=== PATIENT | female | born 1930 | race African-American/Black ===

== ENCOUNTER 2017-08-30 11:58 | Inpatient (IN) | payer OTHER ==
[~2017-08-30] VITALS: Ht 149.9 cm; Wt 64.9 kg
--- NOTE | ~2017-08-30 | HC ---
[facility] [place] [address] CONSULTATION Name: ALLAN TAVERA Room #: [address] [place] [address] [place] ..#: [id number] Admission: 08/30/17 Attend Phys: Lee Garrett MD Discharge: 09/01/17 Date of : [birth year] Report #: [id number] THIS REPORT FOR: //name// CC: Kalani Garrett REQUESTING PHYSICIAN: Lee Garrett MD PRIMARY CARE PHYSICIAN: . CHIEF COMPLAINT: Shortness of breath. HISTORY OF PRESENT ILLNESS: The patient is an 87-year-old female with ischemic cardiomyopathy and known zkaberkz-gt-smvfit LV dysfunction, presented with 1-2 weeks of increasing shortness of breath. It is associated with orthopnea and PND. She has a history of coronary artery disease, but denies chest pain or pressure. Presenting ECG showed a sinus rhythm with repolarization abnormality and QRS was widened, but her cardiac troponin levels were normal at 0.04. Her NT-proBNP was 12,405. She denies palpitations, syncope, or presyncope. She presents in sinus rhythm. She denies noncompliance with her medications. She was seen in our office by myself in April and she was not on Lasix, it apparently had been discontinued from her previous hospitalization. PAST MEDICAL HISTORY: 1. Chronic systolic congestive heart failure, ejection fraction 30-35%. 2. Essential hypertension. 3. Coronary artery disease, status post PCI to the LAD in 1995 and 2015, echocardiogram, ejection fraction 35% on echocardiogram in 2016, nuclear stress test revealed a fixed defect in the anterior wall and ejection fraction was 37.5%. HOME MEDICATIONS: Include aspirin 81 mg daily, carvedilol 12.5 mg p.o. b.i.d., fish oil, lisinopril 5 mg daily, Zocor 40 mg daily, and Aldactone 25 mg daily. In the hospital, she has been receiving IV Lasix. SOCIAL HISTORY: She is a nonsmoker. ALLERGIES: She has no known drug allergies. PAST SURGICAL HISTORY: No recent surgery. [facility] [address] [place] [address] CONSULTATION Name: JD TAVERAAntony Room #: [address] [place] [address].#: [id number] Admission: 08/30/17 Attend Phys: Lee Garrett MD Discharge: 09/01/17 Date of : [birth year] Report #: [id number] FAMILY HISTORY: Sister has had coronary artery disease. REVIEW OF SYSTEMS: GENERAL: No fevers or chills. HEENT: Eyes, denies any blurred vision or loss of vision. No sore throat. GENITOURINARY: No dysuria or hematuria. PULMONARY: No wheezing or cough. Positive shortness of breath. Positive orthopnea. Positive PND. NEUROLOGIC: Denies slurred speech, numbness, or weakness. ENDOCRINE: She does not have diabetes or thyroid disease. HEMATOLOGIC: No history of easy bruising or bleeding. PHYSICAL EXAMINATION: VITAL SIGNS: Her blood pressure is 137/60, heart rate is 80 and in a sinus rhythm, respiratory rate is 18, temperature is 37.1, and her weight is 65 kg. GENERAL: This is a pleasant elderly female. She is alert, oriented, in no apparent distress. NECK: Supple. There is no jugular venous distention. CARDIOVASCULAR: Regular, positive S3. LUNGS: Coarse breath sounds at the bases. ABDOMEN: Nontender. EXTREMITIES: There is no peripheral edema. NEUROLOGIC: There are no focal deficits. SKIN: Warm and dry. LABORATORY DATA: Chest x-ray shows cardiomegaly with pulmonary vascular prominence and mild bibasilar infiltrates, small pleural effusions. Cardiac troponin levels 0.04. Hemoglobin is 12.0, white blood count is 8.5, platelet count is 210,000. Sodium is 141, potassium is 3.4, chloride is 105, CO2 is 26, BUN is 13, creatinine is 1.2, glucose is 79. Troponin I is 0.05. IMPRESSION: 1. Acute on chronic systolic dysfunction, congestive heart failure. She has been placed on IV diuretics and has had a negative fluid balance and we will continue with this for the next 24 hours. Likely, she will need to go home on a lower dose of oral Lasix likely 20 mg in addition to her Aldactone. 2. Hypokalemia. We will replace per protocol. 3. Coronary artery disease. She reports no symptoms of chest discomfort or chest tightness. 4. Hypertension. This is stable. <ELECTRONICALLY SIGNED> By: Zackery Clayton MD, FACC 09/21/17 0846 [id number] [id number] Zackery Clayton MD, FACC /nt
--- NOTE | ~2017-08-30 | EKG ---
[facility] [place] [address] ELECTROCARDIOGRAM REPORT Name: LI[facility]JDAntony [id number] Admission: 08/30/17 Attend Phys: Discharge: Date of : [birth year] Report #: [id number] THIS REPORT FOR: //name// [facility] ED Test Date: 2017-08-30 Test Time: 12:52:08 Pat Name: ALLAN TAVERA Department: Room: Gender: F Application Support Intern: Jeanette CRISOSTOMO : 1930 Requested By: Taniya Henry Order Number: [id number] MD: Jim Calderon Measurements Intervals [place] Rate: 76 P: 39 CT: 126 QRS: -56 QRSD: 144 T: 54 QT: 440 QTc: 495 Interpretive Statements Sinus rhythm Probable left atrial enlargement IVCD, consider atypical RBBB Anteroseptal infarct, age indeterminate Lateral leads are also involved Compared to ECG 10/09/2015 12:06:40 No significant changes Electronically Signed On 08-30-2017 13:19:51 WEATHER FORCASTER by Jim Calderon [email or web address] <ELECTRONICALLY SIGNED> By: Jim Calderon MD 08/30/17 1319 1252 1252 Jim Calderon MD /EPI
[~2017-08-30 11:58] MED LIST: AGGRENOX 25 MG1 EACH PO; ASPIR 8181 MG PO; CARVEDILOL12.5 MG PO; CORAL CALCIUM1 EAC2 PO; LISINOPRIL10 MG PO; NITROGLYCERIN0.4 MG SUBLING; PLAVIX 75 MG TA75 M1 PO; SIMVASTATIN20 MG PO; SIMVASTATIN40 MG PO; SPIRONOLACTONE25 M1 PO; VITAMIN D31000 UNI2 PO; ZANTAC 150MG T150 M1 PO
[2017-08-30 12:55] VITALS: BP 114/69
[2017-08-30 13:13] LABS: HEMATOCRIT 36.2 % (37.0-47.0); HEMOGLOBIN 11.5 gm/dL (12.0-15.0); MCH 25.5 pg (26.0-34.0); MCHC 31.8 g/dL (28.0-37.0); MCV 80.1 fL (80.0-100.0); PLATELET COUNT 216 thou/uL (150-400); RBC 4.51 mil/uL (4.20-5.00); RDW 15.2 % (10.5-14.5); WBC 6.9 thou/uL (4.0-11.0)
[2017-08-30 13:23] LABS: CALCIUM 9.3 mg/dL (8.5-10.1); CREATININE 1.1 mg/dL (0.6-1.0); POTASSIUM 5.2 mmol/L (3.5-5.1)
[2017-08-30 13:25] LABS: URINE BILIRUBIN NEGATIVE (Negative); URINE BLOOD NEGATIVE (Negative); URINE CLARITY SL CLOUDY; URINE COLOR YELLOW; URINE GLUCOSE-RANDOM* NEGATIVE (Negative); URINE KETONES NEGATIVE (Negative); URINE LEUKOCYTES-REFLEX NEGATIVE (Negative); URINE NITRITE-REFLEX NEGATIVE (Negative); URINE PROTEIN (DIPSTICK) NEGATIVE (Negative); URINE SPECIFIC GRAVITY <= 1.005 (1.005-1.035); URINE UROBILINOGEN 0.2 E.U./dl (0.2-1.0)
[2017-08-30 13:29] LABS: ALBUMIN 3.2 g/dL (3.4-5.0); TOTAL BILIRUBIN 0.6 mg/dL (<0.1-1.0); TOTAL PROTEIN 6.7 g/dL (6.4-8.2)
[2017-08-30 13:31] LABS: ABSOLUTE NEUTROPHILS 3.7 thou/uL (1.4-8.2); PLATELET ESTIMATE NORMAL
[2017-08-30] MEDS ORDERED: ASPIR 8181 MG PO (13:58)
[2017-08-30] MEDS ORDERED: FISH OIL 1,0001 EAC8 PO (13:58)
[2017-08-30 15:31] VITALS: BP 141/71
[2017-08-30 20:00] VITALS: BP 119/67
[2017-08-31 00:14] VITALS: BP 111/66
[2017-08-31 03:07] VITALS: BP 131/76
[2017-08-31 05:38] LABS: HEMATOCRIT 36.7 % (37.0-47.0); MCH 25.8 pg (26.0-34.0); MCHC 32.6 g/dL (28.0-37.0); MCV 78.9 fL (80.0-100.0); RBC 4.64 mil/uL (4.20-5.00); RDW 14.7 % (10.5-14.5); WBC 8.5 thou/uL (4.0-11.0)
[2017-08-31 05:51] LABS: CALCIUM 9.2 mg/dL (8.5-10.1); CREATININE 1.2 mg/dL (0.6-1.0)
[2017-08-31 05:59] LABS: POTASSIUM 3.4 mmol/L (3.5-5.1)
[2017-08-31 07:15] VITALS: BP 137/60
[2017-08-31 15:30] VITALS: BP 115/61
[2017-08-31 19:10] VITALS: BP 91/43
[2017-09-01 03:31] VITALS: BP 110/61
[2017-09-01 05:44] LABS: CALCIUM 9.4 mg/dL (8.5-10.1); CREATININE 1.4 mg/dL (0.6-1.0); POTASSIUM 3.6 mmol/L (3.5-5.1)
[2017-09-01 08:23] VITALS: BP 137/33
[2017-09-01 10:37] VITALS: BP 137/63
[2017-09-01 12:14] VITALS: BP 137/63
[2017-09-01] MEDS ORDERED: LISINOPRIL10 MG PO (13:02)
[2017-09-01] MEDS ORDERED: MIRALAX17 GM PO (13:02)
[2017-09-01] MEDS ORDERED: KLOR-CON 1010 MEQ PO (13:02)
[2017-09-01] MEDS ORDERED: LASIX 40 MG TAB40 M2 PO (13:02)
== END 2017-09-01 13:45 | disposition home health service (06) | DRG 291 ==
LOC: ER 11:58 → 4S 14:05 → EROBS 14:05 → 4S 15:16 → ENTRNSPT 09-01 13:57 → EDTRNSPTSTS 09-01 13:59
PROVIDERS: Hospitalist; Internal Medicine Cardiovascular Disease; Physician Assistant
DX: I13.0 Hypertensive heart and chronic kidney disease with heart failure and stage 1 through stage 4 chronic kidney disease, or unspecified chronic kidney disease (principal); I50.23 Acute on chronic systolic (congestive) heart failure; E78.00 Pure hypercholesterolemia, unspecified; I25.5 Ischemic cardiomyopathy; I25.10 Atherosclerotic heart disease of native coronary artery without angina pectoris; E87.6 Hypokalemia; E78.5 Hyperlipidemia, unspecified; E87.5 Hyperkalemia; N18.9 Chronic kidney disease, unspecified; Z90.710 Acquired absence of both cervix and uterus; Z86.73 Personal history of transient ischemic attack (TIA), and cerebral infarction without residual deficits; Z79.82 Long term (current) use of aspirin; Z79.899 Other long term (current) drug therapy; I25.2 Old myocardial infarction
CPT/HCPCS: 10100

== ENCOUNTER 2017-10-02 23:16 | Inpatient (IN) | payer OTHER ==
[~2017-10-02] VITALS: Ht 142 cm; Wt 63.5 kg
--- NOTE | ~2017-10-02 | HC ---
[facility] [place] [address] CONSULTATION Name: ALLAN TAVERA Room #: 359[facility] IN M.R.#: [id number] Admission: 10/03/17 Attend Phys: Jose Benson DO Discharge: 10/05/17 Date of : [birth year] Report #: [id number] THIS REPORT FOR: //name// CC: FAM unknown Jose Benson DATE OF SERVICE: 10/04/2017 HISTORY OF PRESENT ILLNESS: This is an 87-year-old female patient who was admitted with an episode of speech difficulty. The patient was unable to express herself. She was able to comprehend. It came spontaneously, but in relation to a big sneeze. It subsequently resolved spontaneously. It was not associated with any headache. REVIEW OF SYSTEMS: Indicate the patient had similar episode about 4 years ago. It is not clear if she had any workup done at that time. Record indicates that this patient had congestive heart failure and had some dyspnea and has an episode of TIA. She feels back to normal. She usually walks with a walker and she indicates that she did walk with a walker. She does take a baby aspirin daily. Otherwise, she does not complain of any new eye, ENT, cardiac, respiratory, GI, , musculoskeletal, constitutional, dermatological, hematological, psychiatric, throat, allergic or endocrine symptom associated with present symptomatology. PAST MEDICAL HISTORY: Positive for similar episode for which no etiology was found. FAMILY HISTORY: Negative for early age stroke. SOCIAL HISTORY: She does not smoke or drink any alcohol. PHYSICAL EXAMINATION: Indicate she is alert, responsive. Her speech, concentration, fund of knowledge and memory is at her baseline. Cranial nerve examination 2-12 is unremarkable. She has symmetrical strength, sensation, reflexes and tones in all 4 extremities. There is no cerebellar or meningeal sign. There is no carotid bruit. There is no papilledema. Her pulses are somewhat difficult to feel, but she has no edema, cyanosis or jaundice. She is reasonably well-built individual whose hearing and vision looks adequate. She does not have any dysmorphic features of eyes, ears and face. Cardiac examination does not appear to be showing any atrial fibrillation or any definite abnormality. No respiratory difficulty or rhonchi was noticed. Blood pressure was 95/52, respiration is 16, pulse is 80, temperature is 98.1. LABORATORY DATA: Hemoglobin is 11.9 and sodium is normal. Her last LDL was done in 2013 and that was 88. She did have a CT scan of the head and carotid Doppler that was reviewed and that appeared mostly unremarkable. [place] [id number] CONSULTATION Name: ALLAN TAVERA Room #: 359[facility] IN M.R.#: [id number] Admission: 10/03/17 Attend Phys: Jose Benson DO Discharge: 10/05/17 Date of : [birth year] Report #: [id number] blockage, but mild atherosclerotic disease is present. Her prior records were reviewed and it looks like she was seen by Dr. De La Rosa. At that time, she did have symptom suggestive of TIA or ischemia in the left cerebral hemisphere. IMPRESSION: This patient had episodes suggestive of TIA. She had a similar episode in 2013. At that time, her MRA was unremarkable. She is on baby aspirin and statin for a long time and has done reasonably well. I discussed the situation with her. I will repeat her echocardiogram. She never had 30 days event monitor to look for atrial fibrillation, the best I can tell. I discussed the situation with her. RECOMMENDATION: Will be as followin. Replace aspirin with Plavix. 2. I will get an MRA of the brain done. 3. I will repeat the echocardiogram. 4. I will do some more blood workup in this patient. 5. If this workup is unremarkable, I think she can be sent home on Plavix and readjusting her statin further depending upon what her lipid profile shows. Thank you very much for this referral and if you have any question, please feel free to contact me. <ELECTRONICALLY SIGNED> By: Larry Arango MD 10/14/17 1145 1322 215 Larry Arango MD /nt
--- NOTE | ~2017-10-02 | 2DMMODE ---
[facility] [address] [place] [address] 2 D/M-MODE ECHOCARDIOGRAM Name: ALLAN TAVERA Room #: 359-P ADM IN M.R.#: [id number] Admission: 10/03/17 Attend Phys: Jose Benson, Discharge: Date of : [birth year] Date of Service: 10/05/17 0845 Report #: [id number] THIS REPORT FOR: //name// APPROVED REPORT Study performed: 10/04/2017 13:45:15 EXAM: Comprehensive 2D, Doppler, and color-flow Echocardiogram, and bubble study Patient Location: Echo lab Room #: 359 Status: routine BSA: 1.53 HR: 78 bpm BP: 95/52 mmHg Other Information Study Quality: Adequate Indications TIA. Hx: IA, cardiomyopathy CHF, CVA, HTN, HLP Echo Enhancing Agent Indication: Rule out shunt. Also Endocardial border delineation Agent(s) / Amount(s) Used: Agitated Saline 6 cc Optison 5 cc 2D Dimensions RVDd: 31.84 mm IVSd: 9.02 (7-11mm) LVOT Diam: 19.20 (18-24mm) LVDd: 54.54 mm PWd: 11.02 (7-11mm) Ascending Ao: 30.10 (22-36mm) LVDs: 42.34 (25-40mm) Aortic Root: 33.75 mm Volumes Left Atrial Volume (Systole) Single Plane 4CH: 31.21 mL Single Plane 2CH: 40.99 mL LA ESV Index: 25.00 mL/m2 Aortic Valve AoV Peak Tucker.: 1.02 m/s AO Peak Gr.: 4.13 mmHg LVOT Max P.88 mmHg LVOT Max V: 0.98 m/s FRANTZ Vmax: 2.80 cm2 [facility] [place] [address] 2 D/M-MODE ECHOCARDIOGRAM Name: ALLAN TAVERA Room #: 359-[facility] [place] M.R.#: [id number] Admission: 10/03/17 Attend Phys: Jose Benson, Discharge: Date of : [birth year] Date of Service: 10/05/17 0845 Report #: [id number] Mitral Valve E/A Ratio: 0.4 MV Decel. Time: 218.76 ms MV E Max Tucker.: 0.29 m/s MV A Tucker.: 0.79 m/s MV PHT: 63.44 ms IVRT: 152.25 ms Pulmonary Valve PV Peak Tucker.: 0.82 m/s PV Peak Gr.: 2.70 mmHg Pulmonary Vein P Vein S: 0.42 m/s P Vein D: 0.38 m/s P Vein S/D Ratio: 1.11 Tricuspid Valve TR Peak Tucker.: 2.74 m/s RAP Estimate: 5.00 mmHg TR Peak Gr.: 29.98 mmHg PA Pressure: 35.00 mmHg Left Ventricle The left ventricle is normal size. Severe hypokinesis noted of the mid and distal anteroseptal wall and apex There is normal left ventricular wall thickness. Left ventricular ejection fraction is moderate to severely decreased. LVEF is 30-35%. Mild diastolic dysfunction is present (impaired relaxation pattern). Right Ventricle The right ventricle is normal size. Right ventricle is borderline hypokinetic. Atria The left atrium size is normal. No shunting noted by contrast bubble injection. The right atrium size is normal. Aortic Valve Aortic valve leaflets are mildly thickened. No aortic regurgitation is present. There is no aortic valvular stenosis. Mitral Valve Mitral valve leaflets are mildly thickened. Mild to moderate mitral regurgitation. Tricuspid Valve [address] [address] 2 D/M-MODE ECHOCARDIOGRAM Name: ALLAN TAVERA Room #: 359-P [facility] [place] .R.#: [id number] Admission: 10/03/17 Attend Phys: Jose Benson, Discharge: Date of : [birth year] Date of Service: 10/05/17 0845 Report #: [id number] The tricuspid valve is normal in structure. Mild to moderate tricuspid regurgitation. Estimated PAP is 35mmHg. Pulmonic Valve The pulmonary valve is normal in structure. Mild pulmonic regurgitation. Great Vessels The aortic root is normal in size. The ascending aorta is normal in size. IVC is normal in size and collapses >50% with inspiration. Pericardium There is no pericardial effusion. <Conclusion> Severe hypokinesis noted of the mid and distal anteroseptal wall and apex LVEF is 30-35%. Mild to moderate mitral regurgitation. Mild to moderate tricuspid regurgitation. Estimated PAP is 35mmHg. No shunting noted by contrast bubble injection. <ELECTRONICALLY SIGNED> By: Dom Armstrong MD, [facility] 10/05/1745 4 4 Dom Armstrong MD, FACC /INF
--- NOTE | ~2017-10-02 | EKG ---
[place] [address] [facility] [place] [address] ELECTROCARDIOGRAM REPORT Name: LIANGJDAntony Room #: 359-P ADM IN M.R.#: [id number] Admission: 10/03/17 Attend Phys: Jose Benson DO Discharge: Date of : [birth year] Report #: [id number] THIS REPORT FOR: //name// [facility] ED Test Date: 2017-10-03 Test Time: 00:04:53 Pat Name: ALLAN TAVERA Department: Room: [facility] Gender: F Jewelry Manager: KENISHA : 1930 Requested By: Jordon De Oliveira Order Number: [id number] MD: Dandy Posadas Measurements Intervals [place] Rate: 65 P: 48 MN: 156 QRS: -63 QRSD: 144 T: 62 QT: 422 QTc: 439 Interpretive Statements Sinus rhythm Ventricular premature complex Right bundle branch block Anterior infarct, age indeterminate Baseline wander in lead(s) V1 Compared to ECG 08/30/2017 12:52:08 Ventricular premature complex(es) now present Electronically Signed On 10-04-2017 7:32:40 [employer] by Dandy Posadas [email or web address] <ELECTRONICALLY SIGNED> By: Dandy Posadas MD, [facility] 10/04/17 0732 0004 0004 Dandy Posadas MD, [facility] /EPI
[~2017-10-02 23:16] MED LIST changes: +FISH OIL 1,0001 EAC8 PO; +KLOR-CON 1010 MEQ PO; +LASIX 40 MG TAB40 M2 PO; +MIRALAX17 GM PO
[2017-10-02 23:34] VITALS: BP 124/48
[2017-10-03 00:17] LABS: POC CREATININE 1.6 mg/dL (0.6-1.3); POC HEMOGLOBIN 11.9 g/dL (12.0-15.0); POC POTASSIUM 4.8 mmol/L (3.5-5.1)
[2017-10-03 00:26] LABS: HEMATOCRIT 35.1 % (37.0-47.0); HEMOGLOBIN 11.3 gm/dL (12.0-15.0); MCH 24.7 pg (26.0-34.0); MCHC 32.2 g/dL (28.0-37.0); MCV 76.6 fL (80.0-100.0); PLATELET COUNT 278 thou/uL (150-400); RBC 4.58 mil/uL (4.20-5.00); RDW 15.2 % (10.5-14.5); WBC 7.9 thou/uL (4.0-11.0)
[2017-10-03 00:33] LABS: ANION GAP 12 mmol/L (7-16); BUN 33 mg/dL (7-18); CALCIUM 9.2 mg/dL (8.5-10.1); CHLORIDE 106 mmol/L (98-107); CO2 24 mmol/L (21-32); CREATININE 1.6 mg/dL (0.6-1.0); GLUCOSE 107 mg/dL (74-106); POTASSIUM 4.9 mmol/L (3.5-5.1); SODIUM 142 mmol/L (136-145)
[2017-10-03 00:37] LABS: APTT 26.1 Seconds (24.5-32.8); INR 1.1
[2017-10-03 00:42] LABS: ALBUMIN 3.1 g/dL (3.4-5.0); MAGNESIUM 2.2 mg/dL (1.8-2.4); SGOT 14 U/L (15-37); SGPT 18 U/L (30-65); TOTAL BILIRUBIN 0.2 mg/dL (<0.1-1.0); TOTAL PROTEIN 6.8 g/dL (6.4-8.2); TROPONIN-I < 0.04 ng/mL (<0.06)
[2017-10-03 00:56] LABS: ABSOLUTE NEUTROPHILS 2.8 thou/uL (1.4-8.2); ATYPICAL LYMPHS 6 %; METAMYELOCYTES 1 %
[2017-10-03 01:55] VITALS: BP 113/44
[2017-10-03 02:10] VITALS: BP 119/78
[2017-10-03] MEDS ORDERED: LASIX 20 MG TAB20 MG PO (02:59)
[2017-10-03] MEDS ORDERED: LISINOPRIL5 MG PO (03:00)
[2017-10-03 06:59] LABS: URINE BILIRUBIN NEGATIVE (Negative); URINE BLOOD NEGATIVE (Negative); URINE CLARITY CLEAR; URINE COLOR YELLOW; URINE GLUCOSE-RANDOM* NEGATIVE (Negative); URINE KETONES NEGATIVE (Negative); URINE LEUKOCYTES-REFLEX NEGATIVE (Negative); URINE NITRITE-REFLEX NEGATIVE (Negative); URINE PROTEIN (DIPSTICK) NEGATIVE (Negative); URINE UROBILINOGEN 0.2 E.U./dl (0.2-1.0)
[2017-10-03 07:04] LABS: AMP/METHAMP Negative (Negative); BARBITURATES Negative (Negative); BENZODIAZEPINES Negative (Negative); COCAINE Negative (Negative); METHADONE Negative (Negative); OPIATES Negative (Negative); PCP Negative (Negative)
[2017-10-03 08:09] VITALS: BP 126/62
[2017-10-03 16:42] VITALS: BP 112/52
[2017-10-03 20:20] VITALS: BP 112/56
[2017-10-04 03:09] VITALS: BP 114/66
[2017-10-04 07:13] VITALS: BP 100/54
[2017-10-04 11:09] VITALS: BP 95/52
[2017-10-04 15:42] VITALS: BP 107/33
[2017-10-04 16:12] LABS: CHOLESTEROL 166 mg/dL (<200); HDL CHOLESTEROL 45 mg/dL (>40); LDL CHOLESTEROL 97 mg/dL (<100); SERUM ASSESSMENT Clear; TC:HDL 3.7 Ratio (Not establshd); TRIGLYCERIDE 120 mg/dL (<150); VLDL 24 mg/dL (<40)
[2017-10-04 16:37] LABS: TSH 2.183 uIU/mL (0.358-3.740)
[2017-10-04 20:00] VITALS: BP 94/58
[2017-10-05 04:00] VITALS: BP 87/51
[2017-10-05 08:05] VITALS: BP 103/58
[2017-10-05] MEDS ORDERED: CLOPIDOGREL75 MG PO (09:18)
[2017-10-05 12:36] VITALS: BP 83/50
[2017-10-05 14:44] VITALS: BP 83/50
== END 2017-10-05 15:27 | disposition home health service (06) | DRG 69 ==
LOC: ER 23:16 → 3W 10-03 00:46 → EROBS 10-03 00:46 → 3W 10-03 01:56
PROVIDERS: Emergency Medicine; Psychiatry & Neurology Neuromuscular Medicine
PROC: B24BZZ4 Ultrasonography of Heart with Aorta, Transesophageal (ICD-10-PCS; principal; 2017-10-04)
DX: G45.9 Transient cerebral ischemic attack, unspecified (principal); I50.20 Unspecified systolic (congestive) heart failure; E78.00 Pure hypercholesterolemia, unspecified; I11.0 Hypertensive heart disease with heart failure; I25.2 Old myocardial infarction; Z86.73 Personal history of transient ischemic attack (TIA), and cerebral infarction without residual deficits; Z90.710 Acquired absence of both cervix and uterus; Z79.82 Long term (current) use of aspirin; Z79.899 Other long term (current) drug therapy
CPT/HCPCS: 10879